=== PATIENT | male | born 1970 | race African-American/Black ===

== ENCOUNTER 2022-08-21 13:35 | Outpatient (CLI) | payer BC, SELFPAY ==
[2022-08-21 22:10] LABS: Sodium* 138 mmol/L (135-149)
[2022-08-21 22:12] LABS: Bilirubin Total* 0.5 mg/dL (0.1-1.5); Creatinine* 0.9 mg/dL (0.5-1.5); Estimated Glomerular Filt Rate 103 ml/min
[2022-08-21 22:13] LABS: Alanine Aminotransferase* 21 U/L (4-50); Alkaline Phosphatase* 71 U/L (40-150); Aspartate Amino Transferase* 20 U/L (12-35); Blood Urea Nitrogen* 17 mg/dL (7-30); Calcium* 9.5 mg/dL (8.4-10.6); Glucose* 118 mg/dL (60-115); Triglycerides* 59 mg/dL (40-149)
[2022-08-21 22:15] LABS: Creatinine Urine 198.7 mg/dL
[2022-08-21 22:19] LABS: Microalbumin Creatinine Ratio 0 mg/g (0-30); Microalbumin Urine < 1 mg/dL
[2022-08-21 22:38] LABS: PSA Screen* 1.15 ng/mL (0.10-4.00)
[2022-08-21 23:05] LABS: Albumin* 4.5 g/dL (3.3-5.0); Carbon Dioxide* 27 mmol/L (20-32); Chloride* 104 mmol/L (96-114); Cholesterol* 160 mg/dL (90-199); HDL Cholesterol* 44 mg/dL (>=40); LDL Cholesterol Calculated 104 mg/dL (<100); Potassium* 4.5 mmol/L (3.6-5.1); Total Protein* 6.9 g/dL (6.0-8.3)
== END 2022-08-21 13:36 | disposition home or self-care (01) ==
PROVIDERS: PCP Family Medicine; Visit Provider Family Medicine
DX: E11.9 Type 2 diabetes mellitus without complications (principal); R05.9 Cough, unspecified; I10 Essential (primary) hypertension; Z12.5 Encounter for screening for malignant neoplasm of prostate
CPT/HCPCS: 80053; 80061; 82043; 82570; 84153

== ENCOUNTER 2023-08-31 08:30 | Outpatient (REF) | payer BC, SELFPAY | END 2023-08-31 08:31 | disposition home or self-care (01) | LOC: NFLDREF 08:30 | PROVIDERS: PCP Family Medicine; Referring Provider Family Medicine; Visit Provider Family Medicine | DX: Z00.00 Encounter for general adult medical examination without abnormal findings (principal); I10 Essential (primary) hypertension; E11.319 Type 2 diabetes mellitus with unspecified diabetic retinopathy without macular edema; H35.09 Other intraretinal microvascular abnormalities | CPT/HCPCS: 80053; 80061; 82043; 82570; 84153 ==

== ENCOUNTER 2024-11-15 09:34 | Outpatient (CLI) | payer BC, SELFPAY | END 2024-11-15 09:35 | disposition home or self-care (01) | LOC: NFLDREF 11-16 09:42 | PROVIDERS: PCP Family Medicine; Referring Provider Family Medicine; Visit Provider Family Medicine | DX: I10 Essential (primary) hypertension (principal); E11.319 Type 2 diabetes mellitus with unspecified diabetic retinopathy without macular edema; N52.9 Male erectile dysfunction, unspecified; Z12.5 Encounter for screening for malignant neoplasm of prostate; Z13.6 Encounter for screening for cardiovascular disorders | CPT/HCPCS: 80053; 80061; 82043; 82570; G0103 ==